=== PATIENT | female | born 2000 | race Caucasian/White ===

== ENCOUNTER 2022-06-02 19:34 | Emergency (ER) | payer OTHER, BC ==
[2022-06-02 19:40] VITALS: BP_SYST 151
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
--- NOTE | 2022-06-02 19:47 | NUR ---
PATIENT BROUGHT TO BED 5 AND WAITING TO BE SEEN, REPORT GIVEN TO GISELL VALLE
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
[2022-06-02] MEDS ORDERED: IBUPROFEN 600 MG TABLET PO ONE (20:00)
--- NOTE | 2022-06-02 20:16 | NUR ---
Seen by ED
--- NOTE | 2022-06-02 20:49 | NUR ---
PATIENT BACK FROM XRAY.
[2022-06-02] MEDS ORDERED: NAPR-690 PO (21:06)
[2022-06-02 21:20] VITALS: BP_SYST 122
--- NOTE | 2022-06-02 21:20 | NUR ---
Patient given written and verbal discharge instructions and verbalizes understanding. ER MD discussed with patient the results and treatment provided. Patient in stable condition. ID arm band removed. Rx of Naproxen 500 mg po given. Patient and mother educated on pain management and to follow up with PMD. Pain Scale 0/10. Opportunity for questions provided and answered. Medication side effect fact sheet provided.
== END 2022-06-02 21:20 | disposition home or self-care (01) ==
LOC: SED 19:34
DX: S13.4XXA Sprain of ligaments of cervical spine, initial encounter (principal); S23.3XXA Sprain of ligaments of thoracic spine, initial encounter; M54.2 Cervicalgia; M54.6 Pain in thoracic spine; Z88.1 Allergy status to other antibiotic agents; Z79.899 Other long term (current) drug therapy; V43.52XA Car driver injured in collision with other type car in traffic accident, initial encounter; Y93.89 Activity, other specified; Y92.89 Other specified places as the place of occurrence of the external cause; Y99.8 Other external cause status
CPT/HCPCS: 72040-TC; 72072-TC; 81025; 99284